=== PATIENT | female | born 1975 | race Caucasian/White ===

== ENCOUNTER 2019-01-01 11:18 | Emergency (ER) | payer MEDICAID, OTHER ==
[~2019-01-01] VITALS: Wt 78.0 kg
[~2019-01-01 11:18] MED LIST: CIPR500T4 PO; DOCU-144 PO; HYDR-3498 PO; IBUP-1542 PO
[2019-01-01] MEDS ORDERED: ONDANSETRON 4 MG INJ IV STA (12:16)
[2019-01-01] MEDS ORDERED: morphine 4 MG/ML VIAL IV STA ×2 (12:16→12:58)
[2019-01-01] MEDS ORDERED: KETOROLAC 30 MG INJ IV STA (12:16)
[2019-01-01] MEDS ORDERED: SOD CHLORIDE 0.9% 1,000 ML IV STA (12:16)
[2019-01-01] MEDS ORDERED: TAMS-14 PO (15:24)
[2019-01-01] MEDS ORDERED: ONDA8TAB14 PO (15:24)
[2019-01-01] MEDS ORDERED: HYDR-4011 PO (15:24)
[2019-01-01] MEDS ORDERED: CIPR500T4 PO (15:28)
--- NOTE | 2019-01-01 15:28 | ERD ---
ER Documentation Chief Complaint Chief Complaint SEVERE BACK PAIN, ONSET YESTERDAY, NO INJURY HPI 43-year-old female presents with a severe sudden onset left flank pain. She denies fevers. She has vomiting due to the pain. She denies urinary complaints. She has a history of kidney stones. Denies . ROS All systems reviewed and are negative except as per history of present illness. Medications Home Meds Active Scripts Tamsulosin Hcl* (Flomax*) 0.4 Mg Cap.er.24h, 0.4 MG PO BID, #15 CAP Prov:LIU ALLEN MD 01/01/19 Ondansetron (Ondansetron Odt) 8 Mg Tab.rapdis, 8 MG PO Q6H PRN for NAUSEA AND/OR VOMITING, #10 TAB Prov:LIU ALLEN MD 01/01/19 Hydrocodone/Acetaminophen ([place] 5-325 Tablet) 1 Each Tablet, 1 TAB PO Q6H PRN for PAIN, #14 TAB Prov:LIU ALLEN MD 01/01/19 Docusate Sodium* (Colace*) 100 Mg Capsule, 100 MG PO TID, #30 CAP Prov:CHEVY HENDERSON MD 02/07/16 Hydrocodone Bit-Acetaminophen* ([place]*) 5-325 Mg Tab, 1 TAB PO Q6 PRN for PAIN, #20 TAB Prov:CHEVY HENDERSON MD 02/07/16 Ibuprofen* (Motrin*) 600 Mg Tab, 600 MG PO Q8, #30 TAB Prov:CHEVY HENDERSON MD 02/07/16 Ciprofloxacin Hcl* (Ciprofloxacin Hcl*) 500 Mg Tablet, 500 MG PO BID for 7 Days, TAB Prov:CHEVY HENDERSON MD 02/07/16 Allergies Allergies: Coded Allergies: No Known Allergy (Unverified , 01/01/19) PMhx/Soc Medical and Surgical Hx: pt denies Medical Hx, pt denies Surgical Hx History of Surgery: No Anesthesia Reaction: No Hx Neurological Disorder: No Hx Respiratory Disorders: No Hx Cardiac Disorders: No Hx Psychiatric Problems: No Hx Miscellaneous Medical Probl: No Hx Alcohol Use: Yes (occasionally) Hx Substance Use: No Hx Tobacco Use: No Smoking Status: Never smoker FmHx Family History: No diabetes, No coronary disease, No other Physical Exam Vitals Vital Signs Date Temp Pulse Resp B/P (MAP) Pulse Ox O2 O2 Flow FiO2 Time Delivery Rate 01/01/19 98.0 65 18 167/106 100 11:25 (126) Physical Exam Const: No acute distress Head: Atraumatic Eyes: Normal Conjunctiva ENT: Normal External Ears, Nose and Mouth. Neck: Full range of motion. No meningismus. Resp: Clear to auscultation bilaterally Cardio: Regular rate and rhythm, no murmurs Abd: Soft, non tender, non distended. Normal bowel sounds Skin: No petechiae or rashes Back: No midline left flank and mid abdominal tenderness. Nontender McBurney's point no Au sign. Ext: No cyanosis, or edema Neur: Awake and alert Psych: Normal Mood and Affect Result Diagram: 01/01/19 1227 01/01/19 1227 Results 24 hrs Laboratory Tests Test 01/01/19 12:27 01/01/19 12:37 White Blood Count 13.2 10^3/ul Red Blood Count 4.45 10^6/ul Hemoglobin 13.5 g/dl Hematocrit 38.8 % Mean Corpuscular Volume 87.2 fl Mean Corpuscular Hemoglobin 30.3 pg Mean Corpuscular Hemoglobin Concent 34.8 g/dl Red Cell Distribution Width 12.4 % Platelet Count 364 10^3/UL Mean Platelet Volume 9.7 fl Immature Granulocytes % 0.700 % Neutrophils % 82.1 % Lymphocytes % 12.3 % Monocytes % 4.2 % Eosinophils % 0.4 % Basophils % 0.3 % Nucleated Red Blood Cells % 0.0 /100WBC Immature Granulocytes # 0.090 10^3/ul Neutrophils # 10.9 10^3/ul Lymphocytes # 1.6 10^3/ul Monocytes # 0.6 10^3/ul Eosinophils # 0.1 10^3/ul Basophils # 0.0 10^3/ul Nucleated Red Blood Cells # 0.0 10^3/ul Urine Color YELLOW Urine Clarity SLIGHTLY CLOUDY Urine pH 5.0 Urine Specific [place] 1.024 Urine Ketones 1+ mg/dL Urine Nitrite NEGATIVE mg/dL Urine Bilirubin NEGATIVE mg/dL Urine Urobilinogen NEGATIVE mg/dL Urine Leukocyte Esterase 1+ Nydia/ul Urine Microscopic RBC 11 /HPF Urine Microscopic WBC 3 /HPF Urine Squamous Epithelial Cells FEW /HPF Urine Mucus FEW /HPF Urine Hemoglobin 2+ mg/dL Urine Glucose NEGATIVE mg/dL Urine Total Protein NEGATIVE mg/dl Sodium Level 143 mmol/L Potassium Level 4.1 mmol/L Chloride Level 105 mmol/L Carbon Dioxide Level 25 mmol/L Anion Gap 13 Blood Urea Nitrogen 11 mg/dl Creatinine 0.73 mg/dl Est Glomerular Filtrat Rate mL/min > 60 mL/min Glucose Level 148 mg/dl Calcium Level 9.6 mg/dl Total Bilirubin 0.5 mg/dl Direct Bilirubin 0.00 mg/dl Indirect Bilirubin 0.5 mg/dl Aspartate Amino Transf (AST/SGOT) 20 IU/L Alanine Aminotransferase (ALT/SGPT) 19 IU/L Alkaline Phosphatase 84 IU/L Total Protein 8.0 g/dl Albumin 4.8 g/dl Globulin 3.20 g/dl Albumin/Globulin Ratio 1.50 Lipase 79 U/L POC Beta HCG, Qualitative NEGATIVE Current Medications Medications Dose Sig/Rakan Start Time Status Last (Trade) Ordered Route PRN Stop Time Admin Dose Reason Admin Sodium 1,000 ml @ Q1H STAT 01/01/19 DC 01/01/19 Chloride 1,000 mls/hr IV 12:16 12:27 01/01/19 13:15 Morphine 4 mg ONCE STAT 01/01/19 DC 01/01/19 Sulfate IV 12:16 12:27 (morphine) 01/01/19 12:18 Ondansetron 4 mg ONCE STAT 01/01/19 DC 01/01/19 HCl (Zofran IV 12:16 12:27 Inj) 01/01/19 12:18 Ketorolac 30 mg ONCE STAT 01/01/19 DC 01/01/19 Tromethamine IV 12:16 12:45 (Toradol) 01/01/19 12:18 Morphine 4 mg ONCE STAT 01/01/19 DC 01/01/19 Sulfate IV 12:58 13:04 (morphine) 01/01/19 12:59 Procedures/MDM CBC shows mild leukocytosis. Urine shows 1+ leukocyte esterase but mostly hemoglobin few white blood cells. CMP shows no evidence of renal failure or additional acute abnormalities. Patient was given 1 L normal saline IV, Toradol 30 mg IV, Zofran, 2 4 mg doses of morphine throughout her ED course. Patient had a CT scan which shows a 2 mm stone with mild hydronephrosis that the left UV junction. After prolonged ED course patient had resolution of pain. Patient presents with renal colic improved with observation treatment without signs of renal failure, sepsis. She does have some leukocyte esterase which is uncertain of infection but will treat with Cipro, [place], Flomax, instructions for fluids, primary care follow-up and return precautions for fevers, vomiting, worsening pain, new worsening symptoms. She was given resource for urology evaluation but advised he may need authorization from her primary doctor for urology evaluation. The patient was stable with no new complaints during the ER course. Clinically, there is no current evidence to suggest meningitis, sepsis, acute abdomen, pneumonia, stroke, acute coronary syndrome, pulmonary embolism, aortic dissection or any other emergent condition appearing to require further evaluation or hospitalization. Patient counseled regarding my diagnostic impression and care plan. Prior to discharge all questions answered. Pt agrees with treatment plan and understands strict return precautions. Pt is instructed to follow up with primary care provider within 24-48 hours. Precautionary instructions provided including instructions to return to the ER if not improving or for any worsening or changing symptoms or concerns. Departure Diagnosis: Primary Impression: Kidney stone on left side Condition: Stable Patient Instructions: Kidney Stone W/ Colic Referrals: CHRIS CLEVELAND MD Additional Instructions: MIGUEL STALLINGS 2MM. Cheque otro vez con [facility] doctor primario en el [place]o [place] or regresa para mas o nueva simptomas- FICRISTÓBAL, ADEN MAKI KEVIN N. MD Jan 01, 2019 15:28
[2019-01-01 15:46] VITALS: BP 99/51; PULSE 61; RESP 18
== END 2019-01-01 15:50 | disposition home or self-care (01) ==
LOC: FTE 11:18
DX: N20.0 Calculus of kidney (principal)
CPT/HCPCS: 36415; 74176; 80053; 81001; 81025; 83690; 85025; 96361; 96374; 96375; 96376; J1885; J2270; J2405; J7030; Z7502